=== PATIENT | female | born 1975 | race Caucasian/White ===

== ENCOUNTER 2021-11-24 10:08 | Emergency (ER) | payer BC ==
[2021-11-24 10:22] VITALS: BP 147/85
--- NOTE | 2021-11-24 11:30 | ED Physician Documentation ---
History of Present Illness - Stated complaint Stated Complaint: FEMALE - Chief complaint Chief Complaint: General - Additonal information Additional information: 46-year-old female presents emergency department for evaluation of a tampon in her vagina. She had consensual sexual intercourse with her partner this morning but forgot that a tampon was in. She has been unable to remove it. No fevers, denies pain. No concern of STI. Sexually monogamous long-term relationship. Review of Systems Constitutional: reports: Reviewed and negative Nose: reports: Reviewed and negative Cardiac: reports: Reviewed and negative Respiratory: reports: Reviewed and negative : reports: Other (Tampon in vaginal vault) Skin: reports: Reviewed and negative Musculoskeletal: reports: Reviewed and negative PD PAST MEDICAL HISTORY - Present Medications Home Medications: Ambulatory Orders Medication Instructions Recorded Confirmed Norgestimate-Ethinyl Estradiol 1 tab PO DAILY 11/24/21 11/24/21 [Tri-Sprintec Tablet] - Allergies Allergies/Adverse Reactions: Allergies Allergy/AdvReac Type Severity Reaction Status Date / Time No Known Drug Allergies Allergy Verified 11/24/21 10:19 PD ED PE EXPANDED - General General: Alert, No acute distress, Well developed/nourished - Female Female : Tax Preparer present, Other (Tampon is seen lodged distal to the cervix. It was easily retrieved with Isaías forceps intact. Brief evaluation of the cervix revealed no friability discharge or CMT/adnexal tenderness) Results - Vitals Vitals: Vital Signs - 24 hr 11/24/21 10:20 Temperature 36.7 C Heart Rate 70 Respiratory 18 Rate Blood Pressure 147/85 H O2 Saturation 99 Oxygen O2 Source Room air PD MEDICAL DECISION MAKING - ED course Complexity details: d/w patient ED course: 46-year-old female presents emergency department to have a tampon removed from her vagina. She had sexual intercourse this morning and forgot that it was in. We are able to easily remove the tampon using Isaías forceps. Brief view of the cervix post removal showed no friability or unexpected tenderness or drainage. Routine care and emergent return precautions discussed Departure - Departure Disposition: 01 Home, Self Care Clinical Impression: Foreign body in vagina Qualifiers: Encounter type: initial encounter Qualified Code(s): T19.2XXA - Foreign body in vulva and vagina, initial encounter Condition: Stable Record reviewed to determine appropriate education?: Yes Comments: Josie we were able to remove the tampon. I do not expect you to have any significant side effects. You may feel somewhat sore and uncomfortable for the next day or 2 but this should resolve. Tylenol or ibuprofen may be helpful. Do not douche. If at any point you develop fevers, have severe pelvic pain uncontrolled vomiting then please return to the ER for a second evaluation
== END 2021-11-24 11:53 | disposition home or self-care (01) ==
LOC: ED 10:08
DX: T19.2XXA Foreign body in vulva and vagina, initial encounter (principal)
CPT/HCPCS: 99281; 99282